=== PATIENT | male | born 1980 | race Caucasian/White ===

== ENCOUNTER 2024-10-28 16:56 | Emergency (ER) | payer SELFPAY ==
--- OUTSIDE RECORDS SUMMARY | 2024-10-28 17:05 | XMS_ITS | Encounter Summary ---
Author Organization [facility] Address [address] [place] [address] Care Team Providers Care Tour Escort Name Role Phone Unavailable Primary Care Provider Unavailabl e Encounter Details Date Type Department Care Team ([facility] st Contact Info) Description 06/18/2021 Outside Records [facility] [address] [facility] [place] [address] Interface, Provider Social History Tobacco Use Types Packs/Day Years Used Date Smoking Tobacco: Every Day Cigarettes Smokeless Tobacco: Never Alcohol Use Standard Drinks/Week Comments Not Currently 0 (1 standard drink = 0.6 oz pur e alcohol) PHQ-2 Answer Date Recorded PHQ-2 Score 0 06/02/2021 Sex and Gender Information Value Date Recorded Sex Assigned at Not on file 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 No / Unsure 06/02/2021 8:39 AM CDT documented as of this encounter Plan of Treatment Not on file documented as of this encounter Visit Diagnoses Not on filedocumented in this encounter Additional Health Concerns Assessment Noted Time PHQ-9 Depression Total Score: 0 06/03/19 8:39 AM CDT documented as of this encounter
--- OUTSIDE RECORDS SUMMARY | 2024-10-28 17:05 | XMS_ITS | Clinical Summary ---
Author Organization [facility] Address [address] [place] [address] Care Team Providers Care Web Content Director Name Role Phone Unavailable Primary Care Provider Unavailabl e Allergies No known active allergies Medications divalproex (DEPAKOTE) 500 MG EC tablet Take 500 mg by mouth daily. 09/21/2021 Active divalproex (DEPAKOTE ER) 250 MG ER tab Take 250 mg by mouth at bedtime. 08/18/2021 Active haloperidol (HALDOL) 5 MG tablet Take 5 mg by mouth daily. 09/21/2021 Active lithium 300 MG capsule 09/12/2021 Active paliperidone (INVEGA) 6 MG 24 hr tab 09/12/2021 Active Active Problems Problem Noted Date Diagnosed Date Urinary hesitancy 05/03/2021 Assessment & Plan (06/02/2021 10:30 AM CDT): Problem Status: Reports to be a chronic problem Patient states he was seen by psychiatrist in the past for behavior modification Problem Management Strategy: Will refer to psychiatrist/therapist for behavior modifications referral for urology as patient had not established since moving into [facility]. Problem Follow-up Plan of Care: Follow-up if problem worsens or fails to improve Fail to improve may need a referral to urologist Assessment & Plan (05/03/2021 11:00 PM CDT): Problem Status: Reports to be a chronic problem Patient states he was seen by psychiatrist in the past for behavior modification Problem Management Strategy: Will refer to psychiatrist/therapist for behavior modifications Problem Follow-up Plan of Care: Follow-up if problem worsens or fails to improve Fail to improve may need a referral to urologist Schizoaffective disorder, bipolar type Assessment & Plan (10/18/2021 9:28 PM CDT): Psychological condition is unchanged. Continue current treatment regimen. Today patient to be tested for dyslexia, and he thinks he flip letter in words and say it backward. Requested to follow up at psychiatrist, counselor for diagnosis Follow up as needed Psychological condition will be reassessed at the next regular appointment. Assessment & Plan (06/02/2021 10:29 AM CDT): Psychological condition is unchanged. Referral to psychological counseling. Referral to psychiatry. Psychological condition will be reassessed at the next regular appointment. referral given to patient as well as address and phone number to make appt. Assessment & Plan (05/03/2021 10:58 PM CDT): Reported past medical history of schizophrenia Currently no active hallucinations Was referred to psychiatry Follow his/her recommendations PTSD (post-traumatic stress disorder) 04/29/2021 Assessment & Plan (05/03/2021 10:58 PM CDT): Reported past medical history Was referred to psychiatry Follow his/her recommendations Anxiety 04/29/2021 Assessment & Plan (10/18/2021 9:26 PM CDT): Problem Status: a chronic issue Problem Management Strategy: Patient is seen [facility] He states they are not refilling his clonazepam, and other meds are not working for his anxiety Counselor requested to go to PCP to referral his clonazepam, thus he is here Will not refill clonezapem Educated on the side effects of Benzos, Offered to refer to new psychiatrist if needed Follow up in 1-2 months or as needed Problem Goals: Take medications as prescribed Assessment & Plan (05/03/2021 10:57 PM CDT): Problem Status: a chronic issue Problem Management Strategy: Previously on Zoloft and clonazepam PDMP reviewed showed patient receiving 2 mg clonazepam from provider in [place], last refill due 15 pills on January 2021 Will ordered Zoloft Will refer to [facility] for multiple psych disorders Problem Follow-up Plan of Care: Follow up in 1-2 months or as needed Problem Goals: Take medications as prescribed Social History Tobacco Use Types Packs/Day Years Used Date Smoking Tobacco: Every Day Cigarettes Smokeless Tobacco: Never Alcohol Use Standard Drinks/Week Comments Not Currently 0 (1 standard drink = 0.6 oz pur e alcohol) PHQ-2 Answer Date Recorded PHQ-2 Score 0 06/02/2021 Sex and Gender Information Value Date Recorded Sex Assigned at Not on file 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 Gender Identity Not on file Sexual Orientation Not on file Last Filed Vital Signs Vital Sign Reading Time Taken Comments Blood Pressure 142/80 06/02/2021 8:38 AM CDT Pulse 74 06/02/2021 8:38 AM CDT Temperature 36.3 C (97.4 F) 06/02/2021 8:38 AM CDT Respiratory Rate 20 06/02/2021 8:38 AM CDT Oxygen Saturation 97% 06/02/2021 8:38 AM CDT Inhaled Oxygen Concentration - - Weight 87.7 kg (193 lb 6.4 oz) 06/02/2021 8:38 A M CDT Height 167.6 cm (5' 6 ) 04/29/2021 2:09 PM PROGRAMMER ENGINEERING AND SCIENTIFIC Body Mass Index 31.22 04/29/2021 2:09 PM PROGRAMMER ENGINEERING AND SCIENTIFIC Plan of Treatment Health Maintenance Due Date Last Done Comments Hepatitis C Screening 1979 Anxiety Screening 1987 HIV Screening 11/28/1994 Depression Screening 11/28/1997 Hepatitis B Vaccine (1 of 3 - 19+ 3-dose series) 11/28/1998 Pneumococcal Vaccine 0-50 ye ars (1 of 2 - PCV) 11/28/1998 TDAP/DTaP/TD Vaccines (1 - Tdap) 11/28/1998 Lipid Panel 2019 COVID-19 Vaccine ( - 2023-2 5 season) 2023 Influenza Series (#1) 2024 Meningococcal B Vaccine Aged Out No l onger eligible based on patient's age to complete this topic Insurance [facility] [address] [id number] [employer]
--- OUTSIDE RECORDS SUMMARY | 2024-10-28 17:05 | XMS_ITS | Encounter Summary ---
Author Organization [facility] Address [address] [place] [address] Care Team Providers Care Fretted Instrument Repairer Name Role Phone Unavailable Primary Care Provider Unavailabl e Encounter Details Date Type Department Care Team (Late st Contact Info) Description 05/01/2021 Outside Records [facility] [address] [facility] [place] [address] Interface, Provider Social History Tobacco Use Types Packs/Day Years Used Date Smoking Tobacco: Never Smokeless Tobacco: Never Alcohol Use Standard Drinks/Week Comments Not Currently 0 (1 standard drink = 0.6 oz pur e alcohol) PHQ-2 Answer Date Recorded PHQ-2 Score 5 04/29/2021 Sex and Gender Information Value Date Recorded Sex Assigned at Not on file Legal Sex Male 8:37 AM NET DEVELOPER CONSULTANT Gender Identity Not on file Sexual Orientation Not on file COVID-19 Exposure Response Date Recorded In the last month, have you been in contact with someone who was confirmed or suspected to have Coronavirus / COVID-19? No / Unsure 04/29/2021 2:10 PM NET DEVELOPER CONSULTANT documented as of this encounter Plan of Treatment Not on file documented as of this encounter Visit Diagnoses Not on filedocumented in this encounter Additional Health Concerns Assessment Noted Time PHQ-9 Depression Total Score: 19 022 2:17 PM NET DEVELOPER CONSULTANT documented as of this encounter
--- OUTSIDE RECORDS SUMMARY | 2024-10-28 17:05 | XMS_ITS | Encounter Summary ---
Author Organization [facility] Address [address] [place] [address] Care Team Providers Care Tetryl Wringer Operator Name Role Phone Unavailable Primary Care Provider Unavailabl e Encounter Details Date Type Department Care Team (Late st Contact Info) Description 09/25/2021 Outside Records [facility] [address] [facility] [place] [address] Interface, Provider Social History Tobacco Use Types Packs/Day Years Used Date Smoking Tobacco: Every Day Cigarettes Smokeless Tobacco: Never Alcohol Use Standard Drinks/Week Comments Not Currently 0 (1 standard drink = 0.6 oz pur e alcohol) PHQ-2 Answer Date Recorded PHQ-2 Score 0 06/02/2021 Sex and Gender Information Value Date Recorded Sex Assigned at Not on file 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
--- OUTSIDE RECORDS SUMMARY | 2024-10-28 17:05 | XMS_ITS | Encounter Summary ---
Author Organization [facility] Address [address] [place] [address] Care Team Providers Care Mlt Name Role Phone Unavailable Primary Care Provider Unavailabl e Encounter Details Date Type Department Care Team (Late st Contact Info) Description 05/01/2021 Outside Records [facility] [address] [facility] [place] [address] Interface, Provider Social History Tobacco Use Types Packs/Day Years Used Date Smoking Tobacco: Never Smokeless Tobacco: Never Alcohol Use Standard Drinks/Week Comments Not Currently 0 (1 standard drink = 0.6 oz pur e alcohol) PHQ-2 Answer Date Recorded PHQ-2 Score 5 04/29/2021 Sex and Gender Information Value Date Recorded Sex Assigned at Not on file Legal Sex Male 8:37 AM RN OSTOMY Gender Identity Not on file Sexual Orientation Not on file COVID-19 Exposure Response Date Recorded In the last month, have you been in contact with someone who was confirmed or suspected to have Coronavirus / COVID-19? No / Unsure 04/29/2021 2:10 PM RN OSTOMY documented as of this encounter Plan of Treatment Not on file documented as of this encounter Visit Diagnoses Not on filedocumented in this encounter Additional Health Concerns Assessment Noted Time PHQ-9 Depression Total Score: 19 022 2:17 PM RN OSTOMY documented as of this encounter
--- OUTSIDE RECORDS SUMMARY | 2024-10-28 17:05 | XMS_ITS | Encounter Summary ---
Author Organization [facility] Address [address] [place] [address] Care Team Providers Care Green End Department Supervisor Name Role Phone Unavailable Primary Care Provider Unavailabl e Encounter Details Date Type Department Care Team (Late st Contact Info) Description 05/04/2021 Outside Records [facility] [address] [facility] [place] [address] Interface, Provider Social History Tobacco Use Types Packs/Day Years Used Date Smoking Tobacco: Never Smokeless Tobacco: Never Alcohol Use Standard Drinks/Week Comments Not Currently 0 (1 standard drink = 0.6 oz pur e alcohol) PHQ-2 Answer Date Recorded PHQ-2 Score 5 04/29/2021 Sex and Gender Information Value Date Recorded Sex Assigned at Not on file 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 No / Unsure 04/29/2021 2:10 PM CRACKING MACHINE OPERATOR documented as of this encounter Plan of Treatment Not on file documented as of this encounter Visit Diagnoses Not on filedocumented in this encounter Additional Health Concerns Assessment Noted Time PHQ-9 Depression Total Score: 19 022 2:17 PM CRACKING MACHINE OPERATOR documented as of this encounter
--- OUTSIDE RECORDS SUMMARY | 2024-10-28 17:05 | XMS_ITS | Encounter Summary ---
Author Organization [facility] Address [address] [place] [address] Care Team Providers Care Shoe Parts Caser Name Role Phone Unavailable Primary Care Provider Unavailabl e Encounter Details Date Type Department Care Team (Late st Contact Info) Description 05/07/2021 Outside Records [facility] [address] [facility] [place] [address] Interface, Provider Social History Tobacco Use Types Packs/Day Years Used Date Smoking Tobacco: Never Smokeless Tobacco: Never Alcohol Use Standard Drinks/Week Comments Not Currently 0 (1 standard drink = 0.6 oz pur e alcohol) PHQ-2 Answer Date Recorded PHQ-2 Score 5 04/29/2021 Sex and Gender Information Value Date Recorded Sex Assigned at Not on file Legal Sex Male 8:37 AM SENIOR SOLUTIONS CONSULTANT Gender Identity Not on file Sexual Orientation Not on file COVID-19 Exposure Response Date Recorded In the last month, have you been in contact with someone who was confirmed or suspected to have Coronavirus / COVID-19? No / Unsure 04/29/2021 2:10 PM SENIOR SOLUTIONS CONSULTANT documented as of this encounter Plan of Treatment Not on file documented as of this encounter Visit Diagnoses Not on filedocumented in this encounter Additional Health Concerns Assessment Noted Time PHQ-9 Depression Total Score: 19 022 2:17 PM SENIOR SOLUTIONS CONSULTANT documented as of this encounter
--- OUTSIDE RECORDS SUMMARY | 2024-10-28 17:05 | XMS_ITS | Encounter Summary ---
Author Organization [facility] Address [address] [place] [address] Care Team Providers Care Manager Configuration Name Role Phone Unavailable Primary Care Provider Unavailabl e Encounter Details Date Type Department Care Team (Late st Contact Info) Description 11/17/2021 Outside Records [facility] [address] 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
[2024-10-28 17:09] VITALS: BP 144/101; PULSE 76; TEMP 36.9; O2SAT 95
--- NOTE | 2024-10-28 17:18 | ED_ITS ---
HPI - Skin/Abscess/Foreign Bdy General: Chief complaint: Skin/Abscess/Foreign Body Stated complaint: spider bite on knee-pain, drainage Time Seen by Provider: 10/28/24 17:00 Source: patient Mode of arrival: ambulatory Limitations: no limitations History of Present Illness: Patient is a 43-year-old male who presents the emergency department complaining of lesion to left knee. He states that he witnessed a brown recluse spider bite him on the left kneecap, and this occurred on Tuesday. States that he has had nausea but has not vomited, and has had chills but no recorded fevers at home. States he has pain with walking but has remained ambulatory, redness to the anterior knee with no red streaking reported. Reports the pain is severe, asking for something for pain right now. Tetanus not up-to-date. MD complaint: insect bite/sting Onset (ago): day(s) Tetanus up to date: no Location: LLE (knee) Pain Consistency: constant Associated symptoms: Deny chills, fever(s), nausea or vomiting Treatments prior to arrival: none Related Data Previous Rx's ?Medication ?Instructions ?Recorded ondansetron 4 mg disintegrating 4 mg PO TID PRN nausea and 10/28/24 tablet vomiting #30 tabs sulfamethoxazole 800 1 tab PO BID 7 days #14 tabs 10/28/24 mg-trimethoprim 160 mg tablet (Bactrim DS) Allergies Allergy/AdvReac Type Severity Reaction Status Date / Time amoxicillin Allergy Unknown Verified 10/28/24 17:13 Review of Systems General: Reports: 10 or more systems reviewed and unremarkable except in HPI and below Const: Denies: fever(s) or chills Card: Denies: chest pain Resp: Denies: dyspnea GI: Denies: abdominal pain, nausea, vomiting or diarrhea Musc: Denies: extremity pain or joint pain Skin/Breast: Reports: erythema, skin pain, skin tenderness and new lesions (spider bite left knee); Denies: rash Neuro: Denies: headache(s) Physical Exam Const: COMMON NORMALS: no acute distress, average body habitus, patient oriented x3, no limitations, healthy appearing, alert and well nourished OTHER: nontoxic appearing HENMT: COMMON NORMALS: normocephalic and atraumatic HEAD & SCALP: normocephalic and atraumatic Neck/C-Spine: COMMON NORMALS: full ROM, no lymphadenopathy, supple and no meningeal signs Resp: COMMON NORMALS: normal respiratory effort, No use of accessory muscles and clear to auscultation bilaterally AUSCULTATION: clear to auscultation bilaterally Cardio: COMMON NORMALS: regular rate and regular rhythm RATE: regular rate RHYTHM: regular rhythm Extremity: COMMON NORMALS: full ROM and capillary refill normal Neuro: COMMON NORMALS: patient oriented x3 SENSORIUM/ORIENTATION: Yes alert MENINGEAL SIGNS: Yes no meningeal signs Skin: COMMON NORMALS: no wounds and turgor normal NARRATIVE SKIN EXAM: Circumferential erythema to left anterior knee, with central area of skin breakdown. Wound appears moist. Tender to palpation, no red streaking. No palpable fluctuance. Active draining. GENERAL SKIN EXAM: turgor normal Course Vital Signs: Vital signs: Vital Signs Temperature 98.5 F 10/28/24 17:09 Pulse Rate 76 10/28/24 17:09 Blood Pressure 144/101 10/28/24 17:09 Pulse Oximetry 95 10/28/24 17:09 Oxygen Delivery Me thod Room Air 10/28/24 17:09 MDM - Skin/Abscess/Foreign Bdy Medicial Decision Making Patient presents stating he witnessed a brown recluse bite him on the knee, this occurred about 5 days ago. States he has felt nauseous with no vomiting, and no fevers reported at home. Vitals are stable here in the emergency department. He is requesting something for pain, has remained ambulatory and I have little suspicion for any systemic infection. This appears to be clinically significant for a bug bite, likely brown recluse if the patient witnessed it, and he will be treated with Bactrim. His tetanus is updated today, and pain medicine given here in the emergency department. Ultimately he is stable for discharge home but he is given return precautions, of which he endorses understanding. No radiology studies performed this visit Discharge Plan Discharge Patient Disposition: Home Clinical Impression: Brown recluse spider bite Condition: Stable Prescriptions: New sulfamethoxazole-trimethoprim [Bactrim DS] 800-160 mg tablet 1 tab PO BID 7 Days Qty: 14 0RF ondansetron 4 mg tablet,disintegrating 4 mg PO TID PRN (Reason: nausea and vomiting) Qty: 30 0RF Discharge Orders: Discharge ED (Routine); Ordered 10/28/24 Ordered By: Jermaine Arias Patient Instructions: Patient Portal & Asm Instructions Activity Restrictions/Additional Instructions: Brown Recluse Bite Discharge Diagnosis: Brown recluse (Loxosceles reclusa) spider bite. Discharge Instructions: - Wound Care: - Clean the bite area gently with soap and water daily. - Apply a cool compress or ice pack (wrapped in a cloth) to the site for 10?15 minutes every 2?4 hours during the first 48 hours to reduce pain and inflammation. [1] https://www.nejm.org/doi/full/10.1056/JNZGhj521666 [2] https://www.ahajournals.org/doi/abs/10.1161/CIR.3348833040179000?url_ver=Z2002&rfr_id=buddy:rid:crossref.org&rfr_dat=cr_pub%20%200pubmed [3] https://pubmed.ncbi.nlm.nih.gov/20224857 [4] https://jamanetwork.com/journals/jamadermatology/fullarticle/10.1001/jamadermato l.60?utm_source=openevidence&utm_medium=referral - Elevate and rest the affected limb to minimize swelling. [1] https://www.nejm.org/doi/full/10.1056/HQCBfp508442 [2] https://www.ahajournals.org/doi/abs/10.1161/CIR.6860819639509918?url_ver=Z2002&rfr_id=buddy:rid:crossref.org&rfr_dat=cr_pub%20%200pubmed [3] https://pubmed.ncbi.nlm.nih.gov/49207613 [4] https://jamanetwork.com/journals/jamadermatology/fullarticle/101001/jamadermato l.60?utm_source=openevidence&utm_medium=referral - Avoid unnecessary manipulation or aggressive debridement; most lesions heal with conservative care.[1] https://www.nejm.org/doi/full/10.1056/ZGQVyo166303 [3] https://pubmed.ncbi.nlm.nih.gov/36041329 [5] https://pubmed.ncbi.nlm.nih.gov/02830390 [6] https://pubmed.ncbi.nlm.nih.gov/64326360 [7] https://pubmed.ncbi.nlm.nih.gov/9128911 - Pain Management: - Use acetaminophen or NSAIDs for pain control as needed. [2] https://www.ahajournals.org/doi/abs/10.1161/CIR.7982875647559835?url_ver=Z39.88- 2003&rfr_id=buddy:rid:crossref.org&rfr_dat=cr_pub%20%200pubmed [3] https://pubmed.ncbi.nlm.nih.gov/91740909 [4] https://jamanetwork.com/journals/jamadermatology/fullarticle/1001/jamadermato l.?utm_source=openevidence&utm_medium=referral - Severe pain may occur and typically peaks within 24 hours; consider adjuncts such as lidocaine patches if pain is refractory. [4] htt ps://jamanetwork.com/journals/jamadermatology/fullarticle/10.1001/jamadermatol.2 014.605?utm_source=openevidence&utm_medium=referral - Opioid analgesics may be considered for severe pain, but should be used judiciously.[4] https://jamanetwork.com/journals/jamadermatology/fullarticle/101001/jamadermato l.60?utm_source=openevidence&utm_medium=referral - Antibiotic Therapy: - Start trimethoprim-sulfamethoxazole (Bactrim) as prescribed: - Dose: 1 double-strength tablet (160 mg/800 mg) orally twice daily for 7 days. - This is intended to prevent or treat secondary bacterial infection, though routine prophylaxis is not universally recommended unless signs of infection (increased erythema, warmth, purulent drainage) develop. [1] https://www.nejm.org/doi/full/10.1056/NCZRad832412 [3] https://pubmed.ncbi.nlm.nih.gov/07960018 [7] https://pubmed.ncbi.nlm.nih.gov/8754899 - Monitor for adverse reactions (rash, gastrointestinal upset, allergic reaction). - Tetanus Prophylaxis: - Tetanus vaccination was updated today per Infectious Diseases Society of [place] recommendations for wound management.[8] https://itsDapper.CoinBatch.[place] PERL/dawna/article-lookup/doi/10.1093/dawna/ihx323 - Anti-Nausea Medication: - Prescription antiemetics will be sent to the pharmacy; use as directed for nausea. - Monitoring and Follow-Up: - Watch for signs of systemic illness (fever, chills, malaise, jaundice, dark urine, muscle pain) or progressive skin necrosis. - Most bites heal without complication, but severe necrosis may take weeks to months to resolve. [3] https://pubmed.ncbi.nlm.nih.gov/06194022 [7] https://pubmed.ncbi.nlm.nih.gov/2566821 - If the wound enlarges, becomes increasingly painful, or shows signs of infection, or if systemic symptoms develop, seek prompt medical attention. - Prevention and Education: - Brown recluse bites are often self-limited and rarely life-threatening. [1] https://www.nejm.org/doi/full/10.1056/GYNWxz084329 [7] https://pubmed .ncbi.nlm.nih.gov/1153861 - Prevent future bites by inspecting clothing and bedding, especially if stored for long periods.[4] https://jamanetwork.com/journals/jamadermatology/f lucero/10.1001/jamadermatol.2014.605?utm_source=openevidence&utm_medium=refe rral Additional Notes: - No specific antivenom or proven pharmacologic therapy exists for brown recluse bites; supportive care remains the mainstay of management. [1] https://www.nejm.org/doi/full/10.1056/HDBMoe725767 [6] https://pubmed.ncbi.nlm.nih.gov/53952300 [7] https:/ /pubmed.ncbi.nlm.nih.gov/0343863 - Hyperbaric oxygen, dapsone, and glucocorticoids are not routinely recommended due to lack of robust evidence and potential adverse effects.[1] https://www.nejm.org/doi/full/10.1056/BQDFdy760291 [6] https://pubmed.ncbi.nlm.nih.gov/50957085 Return Precautions: - Return to the emergency department or clinic for: - Rapidly expanding wound, severe pain unresponsive to medication, signs of infection, or systemic symptoms. Follow-Up: - Schedule outpatient follow-up in 3?7 days to reassess wound healing and overall status. References * Bites of Brown Recluse Spiders and Suspected Necrotic Arachnidism https://www.nejm.org/doi/full/10.1056/FVSMhy578475 . Zulay CASIANO, Latricia RS. The [place] Journal of Medicine. 2005;352(7):700-7. doi:10.1056/HQZHin967280. * 2023 [place] [employer] and [place] Guidelines for First Aid https://www.ahajournals.org/doi/abs/10.1161/CIR.6283921039292044?url_ver=Z39.8 &rfr_id=buddy:rid:crossref.org&rfr_dat=cr_pub%20%200pubmed . Mary Alicezack Chadwick EK, Carissa FERNANDEZ, Caitlin K, et al. Circulation. 2023;150(24):h423-s596. doi:10.1161/CIR.3234458689279666. * Nineteen Documented Cases of Loxosceles Reclusa Envenomation https://pubmed.ncbi.nlm.nih.gov/16886805 . George HH, Terry SB, Hussein LL, et al. Journal of the [place] [employer] Dermatology. 2001;44(4):603-8. doi:10.1067/mjd.2001.564802. * Extreme Pain From Brown Recluse Spider Bites: Model for Cytokine-Driven Pain https://jamanetwork.com/journals/jamadermatology/fullarticle/10.1001/jamaderma jarrell.2014.605?utm_source=openevidence&utm_medium=referral . Jadon KS, Adamaris K, Danie K, et al. [facility] Dermatology. 2014;150(11):1205-8. doi:10.1001/jamadermatol.2014.605. * Arthropod Bites https://pubmed.ncbi.nlm.nih.gov/05587432 . Hossein Yoder. [place] [employer]. 2013;88(12):841-7. * Envenomation From the Brown Recluse Spider: Review of Mechanism and Treatment Options https://pubmed.ncbi.nlm.nih.gov/77354945 . Jevon WIGGINS, Janene Olivia. [place] Journal of Therapeutics. 1996;3(10):724-34. doi:10.1097/08229793-705397468-32481. * Clinical Presentation and Outcome of Brown Recluse Spider Bite https://pubmed.ncbi.nlm.nih.gov/9691978 . Alejo SW, Daniel KD, Olivier L, Alvin D. Annals of Emergency Medicine. 1997;30(1):28-32. doi:10.1016/o9852-50429796967-0. * Practice Guidelines for the Diagnosis and Management of Skin and Soft Tissue Infections: 2014 Update by the Infectious Diseases Society of [place] https://academic.oup.com/dawna/article-lookup/doi/10.1093/dawna/vsb573 . Amos CASIANO, Savage AL, Tl HF, et al. Clinical Infectious Diseases : An Official Publication of the Infectious Diseases Society of [place]. 2014;59(2):147-59. doi:10.1093/dawna/zlc019. Print Language: Marshallese Coding Level of Care Code ED Relief Map Modeler for Chan Elena
[2024-10-28] MEDS: tetanus-dipt-pertussis 0.5 mL SDV IM (17:25)
[2024-10-28] MEDS: HYDROcodone-acetaminophen 7.5-325 mg Tablet 2 TAB PO (17:25)
== END 2024-10-28 17:37 | disposition home or self-care (01) ==
PROVIDERS: Emergency Provider Physician Assistant
DX: T63.331A Toxic effect of venom of brown recluse spider, accidental (unintentional), initial encounter (principal); X58.XXXA Exposure to other specified factors, initial encounter
CPT/HCPCS: 90471; 90715; 99283; J9999